=== PATIENT | female | born 1940 | race Caucasian/White ===

== ENCOUNTER 2018-01-05 13:03 | Inpatient (IN) | payer MEDICARE, MEDICAID ==
[~2018-01-05] VITALS: Ht 157.4 cm; Wt 85.7 kg
--- NOTE | ~2018-01-05 | PR ---
[place], [place] PROGRESS NOTE NAME: MAIR HERNANDEZ UNIT #: [id number] ROOM: 309 DOCTOR: NEVILLE ROBBINS MD BIRTHDATE: [birth year] DOS: 01/13/2018 INTERVAL NOTE CHIEF COMPLAINT: "Oh good morning." SUMMARY OF THE VISIT: The patient was interviewed as she was sitting eating breakfast. She was bright and pleasant. Her responses tended to be short and simple, but very pleasant and engaging with me. There was no agitation, no aggression, no inappropriate behavior. She did not appear sedated or somnolent. There were no extrapyramidal symptoms or tardive dyskinesia noted. MENTAL STATUS: She remains alert and oriented to self only. It is unclear place, certainly not time. Mood does seem to be trending strongly towards euthymia. Affect is more appropriate. There is no cindy or hypomania noted. There were no gross auditory or visual hallucinations. No delusions, no paranoia. She does process conversation slowly and short term memory continues to be problematic. PLAN: I will maintain her current psychotropics, engage in individual and esteban milieu activity with the plan to return to the least restrictive environment when psychiatrically stable. NEVILLE ROBBINS MD CM:PNTRANS [id number] NEVILLE ROBBINS MD 01/13/18 1104 interface
--- NOTE | ~2018-01-05 | PR ---
[place], [place] PROGRESS NOTE NAME: MARI HERNANDEZ UNIT #: [id number] ROOM: 309 DOCTOR: NEVILLE ROBBINS MD BIRTHDATE: [birth year] DOS: 01/08/2018 CHIEF COMPLAINT: "Oh thank you for stopping." SUMMARY OF THE VISIT: The patient was interviewed as she was sitting in the dining area. She was awake and actually engaging this morning. Nurses report that with the Seroquel last night the patient did sleep much better. She remains grossly confused and could not tell me how long she had been here and when asked where she was living before she came here, she said, in her home of course, she showed no signs of any medication side effects and overall does seem to be trending towards improvement. MENTAL STATUS: She is alert and oriented to person, possibly place, not to time. Mood does seem to be more euthymic. Affect is more appropriate. There is no cindy or hypomania. There is no gross psychosis. Short term memory is significantly impaired. PLAN: I will bring the Nuedexta to therapeutic utilizing 20/ every 12 hours. We will continue her other psychotropics, engage in individual and esteban milieu activity, returning to the least restrictive environment when psychiatrically stable. NEVILLE ROBBINS MD CM:PNTRANS 9 9 NEVILLE ROBBINS MD 01/08/18939 interface
--- NOTE | ~2018-01-05 | PR ---
[place], [place] PROGRESS NOTE NAME: MARI HERNANDEZ UNIT #: [id number] ROOM: 309 DOCTOR: NEVILLE ROBBINS MD BIRTHDATE: [birth year] DOS: 01/07/2018 CHIEF COMPLAINT: The patient was somnolent. SUMMARY OF THE VISIT: The patient was attempted to be interviewed as she was sitting in a chair watching television, actually dosing. Nurses report she slept absolutely not at all last night and was up throughout the entire night. It now seems to have caught up to her. She did not receive any p.r.n. and the sedation then is from being up all night. Her behavior continues to be problematic. Some of the yelling out and the crying has dissipated already with the institution of the Nuedexta. However, she is responding to hallucinations and does seem to be doing things such as knitting or grabbing things that are not there. MENTAL STATUS: It is limited due to her somnolence. PLAN: I will continue to increase her Exelon bringing it from 4.6 to 9.5 mg a day in an effort to improve or maintain ADLs, behavior and cognition. I will discontinue Depakote in lieu of Seroquel 50 mg at bedtime with the hope that the Seroquel not only will aid her sleep, but will decrease the psychotic symptomatology. We will engage in individual and esteban milieu activity, returning then to the least restrictive environment when psychiatrically stable. NEVILLE ROBBINS MD CM:PNTRANS [id number] NEVILLE ROBBINS MD 01/07/18 1253 interface
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
--- NOTE | ~2018-01-05 | PR ---
[place], [place] PROGRESS NOTE NAME: MARI HERNANDEZ UNIT #: [id number] ROOM: 309 DOCTOR: NEVILLE ROBBINS MD BIRTHDATE: [birth year] DOS: 01/09/2018 CHIEF COMPLAINT: "Oh good morning, is this my breakfast?" SUMMARY OF THE VISIT: The patient was interviewed as she was sitting ready to eat her breakfast. She engaged readily in conversation with me and was pleasantly confused for the most part. Nurses report once again she did not sleep at night. She is at least more awake this morning than she had been previously in the mornings when she seems to have her days and nights mixed up. I did not see the presence of any medication side effects. There was no sedation, somnolence, extrapyramidal symptoms or tardive dyskinesia. MENTAL STATUS: She remains alert and oriented to self, possibly place, not to time. Mood still is somewhat labile. Affect is still inappropriate at times. There is no cindy, hypomania or gross psychosis. Short term memory continues to be very problematic. PLAN: I will increase her Seroquel from 50 to 100 mg at bedtime in an effort to improve sleep, stabilize mood and decrease impulsivity. Screening examinations reveal that her vitamin D level is subtherapeutic at 20.3. I will augment with vitamin D 5000 international units daily. Continue to engage in individual and esteban milieu activities, returning then to the least restrictive environment when psychiatrically stable. NEVILLE ROBBINS MD CM:PNTRANS 6 8 NEVILLE ROBBINS MD 01/09/18828 interface
[2018-01-05] MEDS ORDERED: NAMENDA10 MG PO (13:24)
[2018-01-05] MEDS ORDERED: ARICEPT10 M1 PO (13:25)
[2018-01-05] MEDS ORDERED: CELEXA20 MG PO (13:26)
[2018-01-05] MEDS ORDERED: CELEXA10 MG PO (13:26)
[2018-01-05] MEDS ORDERED: DOCUSATE SODIU100 M2 PO (13:27)
[2018-01-05] MEDS ORDERED: MELATONIN3 MG PO (13:28)
[2018-01-05] MEDS ORDERED: ZYPREXA5 M1 PO (13:29)
[2018-01-05] MEDS ORDERED: TYLENOL EXTRA500 MG PO ×2 (13:30→13:33)
[2018-01-05] MEDS ORDERED: CIPRO500 MG PO (13:34)
[2018-01-05 15:21] VITALS: BP 159/53
[2018-01-05] MEDS ORDERED: TRAZODONE50 MG PO (16:30)
[2018-01-05 18:16] LABS: BASO % 0.6 % (0.0-1.0); EOS # 0.1 10*3/uL (0.0-0.4); EOS % 2.2 % (1.0-4.0); HEMATOCRIT 40.5 % (37.0-47.0); HEMOGLOBIN 13.2 g/dl (12.0-16.0); LYMPH # 1.2 10*3/uL (1.3-4.4); LYMPH % 19.3 % (27.0-41.0); MEAN CELL VOLUME 97.4 fl (81.0-99.0); MEAN CORPUSCULAR HGB 31.7 pg (27.0-31.0); MEAN CORPUSCULAR HGB CONC 32.6 g/dl (33.0-37.0); MEAN PLATELET VOLUME 9.3 fl (9.6-12.3); MONO # 0.5 10*3/uL (0.1-1.0); MONO % 8.3 % (3.0-9.0); NEUT # 4.4 10*3/uL (2.3-7.9); NEUT % 69.3 % (47.0-73.0); PLATELET COUNT AUTOMATED 201 10*3/uL (130-400); RED BLOOD COUNT 4.16 10*6/uL (4.10-5.10); WHITE BLOOD COUNT 6.4 10*3/uL (4.8-10.8)
[2018-01-05 18:32] LABS: BUN 18 mg/dl (7-24); CHLORIDE 108 mmol/L (98-107); CREATININE 0.93 mg/dL (0.55-1.02); POTASSIUM 4.2 mmol/L (3.5-5.1); SODIUM 142 mmol/L (136-145)
[2018-01-05 19:48] VITALS: BP 149/50
[2018-01-06 06:40] VITALS: BP 148/54
[2018-01-06 06:45] LABS: BASO % 0.7 % (0.0-1.0); EOS # 0.2 10*3/uL (0.0-0.4); EOS % 3.3 % (1.0-4.0); HEMATOCRIT 40.7 % (37.0-47.0); LYMPH # 1.6 10*3/uL (1.3-4.4); LYMPH % 26.4 % (27.0-41.0); MEAN CELL VOLUME 97.8 fl (81.0-99.0); MEAN CORPUSCULAR HGB 31.3 pg (27.0-31.0); MEAN CORPUSCULAR HGB CONC 31.9 g/dl (33.0-37.0); MEAN PLATELET VOLUME 9.2 fl (9.6-12.3); MONO # 0.5 10*3/uL (0.1-1.0); MONO % 8.9 % (3.0-9.0); NEUT # 3.7 10*3/uL (2.3-7.9); NEUT % 60.2 % (47.0-73.0); PLATELET COUNT AUTOMATED 185 10*3/uL (130-400); RED BLOOD COUNT 4.16 10*6/uL (4.10-5.10); RED CELL DISTRI WIDTH 13.2 % (0-14.5); WHITE BLOOD COUNT 6.1 10*3/uL (4.8-10.8)
[2018-01-06 07:12] LABS: BILIRUBIN NEGATIVE (NEGATIVE); BLOOD NEGATIVE (NEGATIVE); CLARITY CLEAR (CLEAR); COLOR YELLOW (YELLOW); GLUCOSE NEGATIVE (NEGATIVE); KETONE NEGATIVE (NEGATIVE); LEUKO ESTERASE TRACE (NEGATIVE); NITRITE NEGATIVE (NEGATIVE); UROBILINOGEN 0.2 E.U./dl (0.2-1.0)
[2018-01-06 07:31] LABS: ALBUMIN 2.9 gm/dl (3.1-4.5); ALKALINE PHOSPHATASE 45 U/L (45-117); BUN 13 mg/dl (7-24); CHLORIDE 108 mmol/L (98-107); CHOLESTEROL 166 mg/dL (<200); CREATININE 0.77 mg/dL (0.55-1.02); HDL CHOLESTEROL 56 mg/dl (40-60); POTASSIUM 3.9 mmol/L (3.5-5.1); SGOT/AST 18 IU/L (3-35); SGPT/ALT 19 U/L (12-78); SODIUM 143 mmol/L (136-145); TOTAL PROTEIN 6.3 gm/dL (6.4-8.2)
[2018-01-06 07:38] LABS: LDL CHOLESTEROL 97 mg/dL (9-159); TRIGLYCERIDES 63 mg/dl (<150); VLDL CHOLESTEROL 13 mg/dL (6-40)
[2018-01-06 09:10] LABS: VITAMIN D, 25-HYDROXY 20.3 ng/mL (30-100)
[2018-01-06 10:10] LABS: BACTERIA TRACE
[2018-01-06 19:58] VITALS: BP 142/64
[2018-01-07 07:48] VITALS: BP 164/62
[2018-01-07 07:52] VITALS: BP 158/60
[2018-01-07 19:02] VITALS: BP 145/63
[2018-01-08 07:37] VITALS: BP 150/60
[2018-01-08 19:41] VITALS: BP 136/69; BP 150/60
[2018-01-09 07:03] VITALS: BP 151/58
[2018-01-09 20:29] VITALS: BP 160/62
[2018-01-10 07:06] VITALS: BP 148/62
[2018-01-10 19:50] VITALS: BP 150/85
[2018-01-11 07:15] VITALS: BP 151/58
[2018-01-11 19:10] VITALS: BP 144/60
[2018-01-12 07:13] VITALS: BP 140/58
[2018-01-12 19:49] VITALS: BP 115/76
[2018-01-13 07:26] VITALS: BP 138/78
[2018-01-13 19:49] VITALS: BP 143/76
[2018-01-14 08:13] VITALS: BP 150/60
[2018-01-14] MEDS ORDERED: EXELON13.3 MG/21 T (09:13)
[2018-01-14] MEDS ORDERED: MIRTAZAPINE15 M2 PO (09:13)
[2018-01-14] MEDS ORDERED: MEMANTINE HCL10 MG PO (09:13)
[2018-01-14] MEDS ORDERED: QUETIAPINE FUM100 M3 PO (09:13)
[2018-01-14] MEDS ORDERED: NEUDEXT PO (09:13)
[2018-01-14] MEDS ORDERED: MIRALAX17 GM PO (10:00)
[2018-01-14] MEDS ORDERED: PREPARATION H CR1 OZ R (10:02)
[2018-01-14] MEDS ORDERED: VITAMIN D5000 UNI1 PO (10:03)
== END 2018-01-14 11:30 | DRG 883 ==
LOC: 3N 13:03
PROVIDERS: Internal Medicine; Psychiatry & Neurology Psychiatry
DX: F63.81 Intermittent explosive disorder (principal); F23 Brief psychotic disorder; F33.9 Major depressive disorder, recurrent, unspecified; E78.5 Hyperlipidemia, unspecified; G30.9 Alzheimer's disease, unspecified; F02.80 Dementia in other diseases classified elsewhere, unspecified severity, without behavioral disturbance, psychotic disturbance, mood disturbance, and anxiety; E87.8 Other disorders of electrolyte and fluid balance, not elsewhere classified; I10 Essential (primary) hypertension; I25.10 Atherosclerotic heart disease of native coronary artery without angina pectoris; K59.00 Constipation, unspecified; M19.90 Unspecified osteoarthritis, unspecified site; I65.22 Occlusion and stenosis of left carotid artery; R73.9 Hyperglycemia, unspecified; F48.2 Pseudobulbar affect; Z79.899 Other long term (current) drug therapy

== ENCOUNTER 2018-03-11 15:32 | Inpatient (IN) | payer MEDICARE, MEDICAID ==
[~2018-03-11] VITALS: Ht 157.4 cm; Wt 80.5 kg
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
--- NOTE | ~2018-03-11 | PR ---
[place], [place] PROGRESS NOTE NAME: MARI HERNANDEZ UNIT #: [id number] ROOM: 314 DOCTOR: VINCE KRUGER CNP BIRTHDATE: [birth year] DOS: 03/16/2018 CHIEF COMPLAINT: "I am doing okay." SUMMARY OF VISIT: The patient was interviewed as she sat in the dining room, eating her lunch. The patient reports that she is feeling much better and that she slept okay. Staff reports that the patient appears to be occasionally agitated, however, can be easily redirected. No behaviors reported. MENTAL STATUS EXAMINATION: The patient is alert and oriented to self. She is pleasant and cooperative with me; however, she becomes tearful, but was easily redirected. No cindy or hypomania noted. No delusions or paranoia noted. No psychotic symptoms noted. No auditory or visual hallucinations noted. Her mood is somewhat anxious. Her affect was congruent with mood. No lethargy note. PLAN: Increase the patient's Remeron to 30 mg at bedtime. Monitor for side effects. Patient's VPA level was 63 today, so this is within normal range. Continue to encourage the patient to engage in individual and esteban milieu activity. Continue fall and safety precautions. Plan to return the patient to the least restrictive environment once considered psychiatrically stable. Vince Kruger CNP CM:PNTRANS [phone] VINCE KRUGER CNP 03/17/18 0206 interface
--- NOTE | ~2018-03-11 | PR ---
[place], [place] PROGRESS NOTE NAME: MARI HERNANDEZ UNIT #: [id number] ROOM: 314 DOCTOR: NEVILLE ROBBINS MD BIRTHDATE: [birth year] DOS: 03/17/2018 INTERVAL NOTE CHIEF COMPLAINT: "Oh, I am okay, thank you for asking." SUMMARY OF THE VISIT: The patient was interviewed as she was eating [employer] in the dining area. She had most of her breakfast eaten already. She stopped and engaged in relatively pleasant conversation. Her responses were brief and she was more inclined on focusing on her breakfast than engaging in conversation with me, but ultimately she voiced no complaints. She was not agitated or aggressive. Nurses report, however, she still has episodes of acting out and becoming extremely agitated quickly. MENTAL STATUS: She is alert and oriented to person, possibly place, not to time. Mood does still seem to be labile. Affect at times is inappropriate. There is no hypomania, cindy or psychosis. Short-term memory continues to be problematic. PLAN: I will adjust her Seroquel slightly increasing it from 25 mg 3 times a day to 50 mg twice daily. We will monitor and support. NEVILLE ROBBINS MD CM:PNTRANS [phone] NEVILLE ROBBINS MD 03/17/18 1210 interface
--- NOTE | ~2018-03-11 | PR ---
[place], [place] PROGRESS NOTE NAME: MARI HERNANDEZ UNIT #: [id number] ROOM: 314 DOCTOR: VINCE KRUGER CNP BIRTHDATE: [birth year] DOS: 03/15/2018 CHIEF COMPLAINT: "Where are we now?" SUMMARY OF THE VISIT: The patient was interviewed in the dining room after breakfast. She did engage readily in conversation with me. She reports that she slept well last night. She reports that her appetite is good. She reports that she is happy. She denies feeling anxious. The staff does report that the patient has had no behaviors. No agitation or aggression noted at this time towards staff or her peers. MENTAL STATUS EXAMINATION: The patient is alert and oriented to herself only. She was pleasant and cooperative with me. There were no signs of cindy or hypomania. No delusions or paranoia noted. No psychotic symptoms noted. No auditory or visual hallucinations noted. Her mood was calm at this time. Her affect was congruent with mood. No agitation or aggression noted. PLAN: We will check a VPA level in the morning. Also we will change Depakote tablet to Depakote sprinkles. We will continue to engage the patient in individual and esteban milieu activity. Continue fall and safety precautions and we will plan to return the patient to the least restrictive environment when she is considered psychiatrically stable. Vince Kruger CNP CM:PNTRANS [id number] VINCE KRUGER CNP 03/16/18 0820 interface
--- NOTE | ~2018-03-11 | PR ---
[place], [place] PROGRESS NOTE NAME: MARI HERNANDEZ UNIT #: [id number] ROOM: 314 DOCTOR: NEVILLE ROBBINS MD BIRTHDATE: [birth year] DOS: 03/13/2018 INTERVAL NOTE CHIEF COMPLAINT: "Oh ho, good morning there." SUMMARY OF THE VISIT: The patient was interviewed as she was sitting in a Marisa chair after having already eaten her breakfast. She smiled readily especially when I introduced the female medical student that was working with me. She was fairly pleasant and bright. There was no agitation or aggression, but she remained grossly confused. MENTAL STATUS: She is alert and oriented to person, unclear place, certainly not time. Mood does seem to be relatively euthymic this morning. There is no cindy, hypomania or gross psychosis. Short-term memory continues to be very poor. PLAN: I will maintain her current psychotropic regimen. Continue to support and monitor, engage in individual and esteban milieu activity, returning to the least restrictive environment when psychiatrically stable. NEVILLE ROBBINS MD CM:PNTRANS [id number] NEVILLE ROBBINS MD 03/13/18 1109 interface
--- NOTE | ~2018-03-11 | PR ---
[place], [place] PROGRESS NOTE NAME: MARI HERNANDEZ UNIT #: [id number] ROOM: 314 DOCTOR: NEVILLE ROBBINS MD BIRTHDATE: [birth year] DOS: 03/19/2018 CHIEF COMPLAINT: "Oh good morning." SUMMARY OF THE VISIT: The patient was interviewed as she was sitting, eating her breakfast. She smiled upon approach and engaged in brief superficial conversation. She continues to be very vague and her responses for the most part were short and simple, at times inappropriate. She smiled, however, and did seem to be pleasantly confused. Nurses report, however, she had a bad evening and woke up at 3 in the morning and then had trouble falling asleep thereafter. She did appear somewhat sedate this morning. MENTAL STATUS: She is alert and oriented to person, doubtful to place, certainly not time. Mood does seem to be trending towards euthymia. Affect is more appropriate. There was no agitation or aggression, no mood lability was noted. No overt auditory or visual hallucinations. PLAN: At this point in time, I will change her Seroquel from 50 mg twice daily to 100 mg at bedtime attempting to lessen any daytime somnolence and improving nighttime sedation. We will monitor for risk, benefit, engage in individual and esteban milieu activity, returning then to the least restrictive environment when psychiatrically stable. NEVILLE ROBBINS MD CM:PNTRANS [phone] NEVILLE ROBBINS MD 03/19/18 1359 interface
--- NOTE | ~2018-03-11 | PR ---
[place], [place] PROGRESS NOTE NAME: MARI HERNANDEZ UNIT #: [id number] ROOM: 314 DOCTOR: NEVILLE ROBBINS MD BIRTHDATE: [birth year] DOS: 03/18/2018 INTERVAL NOTE CHIEF COMPLAINT: "Oh good morning, I am fine, thank you." SUMMARY OF THE VISIT: The patient was interviewed as she was eating her breakfast. She stopped and engaged in pleasant conversation with myself and the medical student that was rounding with me. She was very engaging and voiced no complaints. Nurses report that she has been pleasant and confused and has not been exit seeking or agitated. She has been tolerating the current medication regimen well without sedation, somnolence, extrapyramidal symptoms or tardive dyskinesia. MENTAL STATUS: She is alert and oriented to person, possibly place, certainly not time. Mood does seem to be strongly trending towards euthymia. Affect is much more appropriate. There is no hypomania or cindy. There are no gross psychotic symptoms. No auditory or visual hallucinations, delusions or paranoia are present. Short-term memory continues to be very problematic. PLAN: I will maintain her current psychotropic regimen. I will check a valproic acid level in the a.m. to ensure that it is therapeutic. Continue to engage in individual and esteban milieu activities, returning then to the least restrictive environment when psychiatrically stable. NEVILLE ROBBINS MD CM:PNTRANS [phone] NEVILLE ROBBINS MD 03/18/18 1001 interface
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
[~2018-03-11 15:32] MED LIST: ARICEPT10 M1 PO; CELEXA10 MG PO; CELEXA20 MG PO; CIPRO500 MG PO; DOCUSATE SODIU100 M2 PO; EXELON13.3 MG/21 T; MELATONIN3 MG PO; MEMANTINE HCL10 MG PO; MIRALAX17 GM PO; MIRTAZAPINE15 M2 PO; NAMENDA10 MG PO; NEUDEXT PO; PREPARATION H CR1 OZ R; QUETIAPINE FUM100 M3 PO; TRAZODONE50 MG PO; TYLENOL EXTRA500 MG PO; VITAMIN D5000 UNI1 PO; ZYPREXA5 M1 PO
[2018-03-11] MEDS ORDERED: Depakote250 MG PO (16:09)
[2018-03-11 20:45] VITALS: BP 152/73
[2018-03-11 21:26] VITALS: BP 152/73
[2018-03-12 07:03] LABS: BASO % 0.6 % (0.0-1.0); EOS # 0.1 10*3/uL (0.0-0.4); EOS % 2.2 % (1.0-4.0); HEMATOCRIT 47.2 % (37.0-47.0); HEMOGLOBIN 15.2 g/dl (12.0-16.0); LYMPH # 1.5 10*3/uL (1.3-4.4); MEAN CELL VOLUME 97.1 fl (81.0-99.0); MEAN CORPUSCULAR HGB 31.3 pg (27.0-31.0); MEAN CORPUSCULAR HGB CONC 32.2 g/dl (33.0-37.0); MEAN PLATELET VOLUME 9.5 fl (9.6-12.3); MONO # 0.6 10*3/uL (0.1-1.0); MONO % 9.5 % (3.0-9.0); NEUT # 4.1 10*3/uL (2.3-7.9); NEUT % 63.4 % (47.0-73.0); PLATELET COUNT AUTOMATED 184 10*3/uL (130-400); RED BLOOD COUNT 4.86 10*6/uL (4.10-5.10); RED CELL DISTRI WIDTH 12.6 % (0-14.5); WHITE BLOOD COUNT 6.4 10*3/uL (4.8-10.8)
[2018-03-12 07:29] LABS: ALBUMIN 3.1 gm/dl (3.1-4.5); ALKALINE PHOSPHATASE 61 U/L (45-117); BUN 13 mg/dl (7-24); CHLORIDE 111 mmol/L (98-107); CREATININE 0.84 mg/dL (0.55-1.02); HDL CHOLESTEROL 49 mg/dl (40-60); POTASSIUM 3.9 mmol/L (3.5-5.1); SGOT/AST 24 IU/L (3-35); SGPT/ALT 23 U/L (12-78); SODIUM 147 mmol/L (136-145); TOTAL PROTEIN 6.6 gm/dL (6.4-8.2)
[2018-03-12 07:33] LABS: CHOLESTEROL 220 mg/dL (<200); LDL CHOLESTEROL 149 mg/dL (9-159); TRIGLYCERIDES 112 mg/dl (<150); VALPROIC ACID (DEPAKENE) 27.6 ug/ml (50-100); VLDL CHOLESTEROL 22 mg/dL (6-40)
[2018-03-12 08:03] LABS: VITAMIN D, 25-HYDROXY 31.6 ng/mL (30-100)
[2018-03-12 08:28] VITALS: BP 153/60
[2018-03-12 19:49] VITALS: BP 122/65
[2018-03-13 07:18] VITALS: BP 148/72
[2018-03-13 19:24] VITALS: BP 142/71
[2018-03-14 07:17] VITALS: BP 146/74
[2018-03-14 20:00] VITALS: BP 148/72
[2018-03-15 08:21] VITALS: BP 124/64
[2018-03-15 20:00] VITALS: BP 126/56
[2018-03-16 08:07] VITALS: BP 141/68
[2018-03-16 20:00] VITALS: BP 139/56
[2018-03-17 07:00] VITALS: BP 131/68
[2018-03-17 20:00] VITALS: BP 148/60
[2018-03-18 07:45] VITALS: BP 138/69
[2018-03-18 19:48] VITALS: BP 113/70
[2018-03-19 07:44] VITALS: BP 120/67
[2018-03-19 20:00] VITALS: BP 145/65
[2018-03-20 08:10] VITALS: BP 139/70
[2018-03-20] MEDS ORDERED: QUETIAPINE FUM100 M3 PO (09:17)
[2018-03-20] MEDS ORDERED: MEMANTINE HCL10 MG PO (09:17)
[2018-03-20] MEDS ORDERED: DIVALPROEX SOD125 M1 PO (09:17)
[2018-03-20] MEDS ORDERED: EXELON13.3 MG/21 T (09:17)
[2018-03-20] MEDS ORDERED: MIRTAZAPINE30 M2 PO (09:17)
[2018-03-20] MEDS ORDERED: NEUDEXT PO (09:17)
[2018-03-20] MEDS ORDERED: VITAMIN D5000 UNI1 PO (09:17)
== END 2018-03-20 14:18 | DRG 883 ==
LOC: 3N 15:32
PROVIDERS: ADMIT Psychiatry & Neurology Psychiatry
DX: F63.81 Intermittent explosive disorder (principal); F23 Brief psychotic disorder; N39.0 Urinary tract infection, site not specified; F02.81 Dementia in other diseases classified elsewhere, unspecified severity, with behavioral disturbance; F33.9 Major depressive disorder, recurrent, unspecified; Z66 Do not resuscitate; Z51.5 Encounter for palliative care; R73.9 Hyperglycemia, unspecified; E87.8 Other disorders of electrolyte and fluid balance, not elsewhere classified; I25.10 Atherosclerotic heart disease of native coronary artery without angina pectoris; M19.90 Unspecified osteoarthritis, unspecified site; I10 Essential (primary) hypertension; E78.5 Hyperlipidemia, unspecified; K59.00 Constipation, unspecified; G30.9 Alzheimer's disease, unspecified

== ENCOUNTER 2018-03-11 17:01 | Emergency (ER) | payer MEDICARE, MEDICAID ==
[~2018-03-11 17:01] MED LIST changes: +Depakote250 MG PO
[2018-03-11 17:36] LABS: BASO % 0.5 % (0.0-1.0); EOS # 0.1 10*3/uL (0.0-0.4); EOS % 0.8 % (1.0-4.0); HEMATOCRIT 43.5 % (37.0-47.0); HEMOGLOBIN 14.5 g/dl (12.0-16.0); LYMPH # 1.3 10*3/uL (1.3-4.4); MEAN CORPUSCULAR HGB 31.7 pg (27.0-31.0); MEAN CORPUSCULAR HGB CONC 33.3 g/dl (33.0-37.0); MEAN PLATELET VOLUME 9.7 fl (9.6-12.3); MONO # 0.6 10*3/uL (0.1-1.0); MONO % 7.4 % (3.0-9.0); NEUT # 5.4 10*3/uL (2.3-7.9); PLATELET COUNT AUTOMATED 198 10*3/uL (130-400); RED BLOOD COUNT 4.58 10*6/uL (4.10-5.10); RED CELL DISTRI WIDTH 12.6 % (0-14.5); WHITE BLOOD COUNT 7.4 10*3/uL (4.8-10.8)
[2018-03-11 17:48] LABS: BUN 20 mg/dl (7-24); CHLORIDE 109 mmol/L (98-107); CREATININE 0.78 mg/dL (0.55-1.02); POTASSIUM 3.9 mmol/L (3.5-5.1); SODIUM 141 mmol/L (136-145)
[2018-03-11 17:49] LABS: ACETAMINOPHEN (TYLENOL) < 5.0 ug/ml (10-30); ETHYL ALCOHOL < 3.0 mg/dl (<3)
[2018-03-11 17:55] LABS: BILIRUBIN NEGATIVE (NEGATIVE); BLOOD NEGATIVE (NEGATIVE); CLARITY SL CLOUDY (CLEAR); COLOR YELLOW (YELLOW); GLUCOSE NEGATIVE (NEGATIVE); KETONE NEGATIVE (NEGATIVE); LEUKO ESTERASE 1+ (NEGATIVE); NITRITE NEGATIVE (NEGATIVE); UROBILINOGEN 0.2 E.U./dl (0.2-1.0)
[2018-03-11 18:01] LABS: BACTERIA 2+; RBC 0-2 rbc/hpf (0-2); WBC 16-20 wbc/hpf (0-5)
[2018-03-11 18:03] LABS: URINE AMPHETAMINES < 1000 (1000ng/ml); URINE BARBITURATES < 200 (200ng/ml); URINE BENZODIAZEPINES < 200 (200ng/ml); URINE CANNABINOIDS (THC) < 50 (50ng/ml); URINE COCAINE < 300 (300ng/ml); URINE METHADONE < 300 (300ng/ml); URINE OPIATES < 300 (300ng/ml)
[2018-03-11 18:04] LABS: URINE PHENCYCLIDINE < 25 (25ng/ml)
== END 2018-03-11 20:45 | disposition other institution (70) ==
LOC: ED 17:01
PROVIDERS: Nurse Practitioner Family
DX: F23 Brief psychotic disorder (principal); I25.10 Atherosclerotic heart disease of native coronary artery without angina pectoris; E78.5 Hyperlipidemia, unspecified; I10 Essential (primary) hypertension; M19.90 Unspecified osteoarthritis, unspecified site; Z79.899 Other long term (current) drug therapy